=== PATIENT | male | born 1955 | race Caucasian/White ===

== ENCOUNTER 2018-05-24 09:43 | Outpatient (REF) | payer MEDICARE, SELFPAY ==
[2018-05-24 21:33] LABS: Abs Immature Grans 0.02 k/cumm (0.0-0.09); Absolute Basophil Count 0.02 k/cumm (0.0-0.2); Absolute Eosinophil Count 0.04 k/cumm (0.0-0.7); Absolute Lymphocyte Count 0.64 k/cumm (1.2-3.4); Absolute Monocyte Count 0.69 k/cumm (0.11-0.7); Absolute Neutrophil Count 3.43 k/cumm (1.2-6.7); Basophils % 0.4; Eosinophils % 0.8; HCT 40.3 % (40.0-50.0); HGB 12.8 g/dL (13.5-17.5); Immature Grans % 0.4; Lymphocytes % 13.2; Mean Corp. HGB Concentration 31.8 g/dL (32.0-36.0); Mean Corpuscular Hemoglobin 26.8 pg (27.0-33.0); Mean Corpuscular Volume 84.5 fL (80-95); Mean Platelet Volume 11.9 fL (8.0-11.0); Monocytes % 14.3; Neutrophils % 70.9; Platelet Count 194 x1000/uL (130-400); RBC 4.77 m/cumm (4.50-6.00); RBC Distribution Width 14.4 % (11.8-14.1); White Blood Cell Count 4.84 k/cumm (4.4-10.8)
[2018-05-24 21:47] LABS: ALT 58 U/L (12-78); AST 66 U/L (15-37); Alkaline Phosphatase 177 U/L (46-116); Anion Gap 7.4 mmol/L (3-11); BUN 10 mg/dL (7-18); Bilirubin, Total 0.2 mg/dL (0.2-1.0); CO2 27.6 mmol/L (21.0-32.0); CREATININE 0.65 mg/dL (0.70-1.30); Calcium 8.6 mg/dL (8.5-10.1); Chloride 103 mmol/L (98-107); Glucose 89 mg/dL (70-100); Potassium 5.2 mmol/L (3.5-5.1); Sodium 138 mmol/L (136-145); Total Protein 6.6 g/dL (6.4-8.2)
== END 2018-05-24 10:03 ==
LOC: NCHCN 09:43
PROVIDERS: PCP Specialist/Technologist Athletic Trainer; Visit Provider Specialist/Technologist Athletic Trainer
DX: R79.89 Other specified abnormal findings of blood chemistry (principal); R16.1 Splenomegaly, not elsewhere classified; Z51.81 Encounter for therapeutic drug level monitoring
CPT/HCPCS: 80053; 83735; 85025

== ENCOUNTER → 2018-06-01 08:38 | Outpatient (BNVA) | payer MEDICARE, SELFPAY | PROVIDERS: Visit Provider Orthopaedic Surgery | DX: M70.61 Trochanteric bursitis, right hip (principal); M70.62 Trochanteric bursitis, left hip | CPT/HCPCS: 20610; 99211; 99213; J1040 ==

== ENCOUNTER 2018-06-15 16:00 | Outpatient (REF) | payer MEDICARE, SELFPAY ==
[2018-06-15 20:52] LABS: Albumin 3.2 g/dL (3.4-5.0); Alkaline Phosphatase 212 U/L (46-116)
[2018-06-15 21:02] LABS: GGT 175 U/L (15-85)
== END 2018-06-15 16:20 ==
LOC: NCHCN 16:00
PROVIDERS: PCP Specialist/Technologist Athletic Trainer; Visit Provider Specialist/Technologist Athletic Trainer
DX: R74.8 Abnormal levels of other serum enzymes (principal); C49.9 Malignant neoplasm of connective and soft tissue, unspecified
CPT/HCPCS: 82040; 82977; 84075

== ENCOUNTER 2018-06-16 08:15 | Outpatient (CLI) | payer MEDICARE, SELFPAY ==
--- NOTE | 2018-06-16 08:30 | DI.RAD_ITS ---
SYMPTOMS/DIAGNOSIS: LEFT FOOT PAIN, M79.602 LEFT FOOT: Three views. No priors. Mild periarticular spurring and joint space narrowing is seen at the 1st metatarsophalangeal joint. There is a small spur at the plantar surface of the calcaneus. The bones are intact and normally mineralized. Vascular calcifications are present. IMPRESSION: Mild degenerative changes of the left foot.
== END 2018-06-16 08:35 ==
PROVIDERS: PCP Specialist/Technologist Athletic Trainer; Visit Provider Specialist/Technologist Athletic Trainer
DX: M79.672 Pain in left foot (principal); M19.072 Primary osteoarthritis, left ankle and foot
CPT/HCPCS: 73630

== ENCOUNTER → 2018-07-13 10:34 | Outpatient (BNVA) | payer MEDICARE, MEDICAID, SELFPAY | PROVIDERS: PCP Specialist/Technologist Athletic Trainer; Referring Provider Specialist/Technologist Athletic Trainer; Visit Provider Orthopaedic Surgery | DX: M19.032 Primary osteoarthritis, left wrist (principal) | CPT/HCPCS: 20605; 99211; 99213; J1040 ==

== ENCOUNTER 2018-08-16 11:34 | Outpatient (REF) | payer MEDICARE, SELFPAY ==
[2018-08-16 21:40] LABS: ALT 52 U/L (12-78); AST 72 U/L (15-37); Albumin 3.5 g/dL (3.4-5.0); Alkaline Phosphatase 183 U/L (46-116); Anion Gap 9.8 mmol/L (3-11); BUN 9 mg/dL (7-18); Bilirubin, Total 0.4 mg/dL (0.2-1.0); CO2 27.2 mmol/L (21.0-32.0); CREATININE 0.75 mg/dL (0.70-1.30); Chloride 100 mmol/L (98-107); Glucose 100 mg/dL (70-100); Potassium 3.9 mmol/L (3.5-5.1); Sodium 137 mmol/L (136-145); Total Protein 7.6 g/dL (6.4-8.2)
== END 2018-08-16 11:54 ==
LOC: NCHCN 11:34
PROVIDERS: PCP Specialist/Technologist Athletic Trainer; Visit Provider Specialist/Technologist Athletic Trainer
DX: R74.8 Abnormal levels of other serum enzymes (principal); R79.89 Other specified abnormal findings of blood chemistry
CPT/HCPCS: 80053

== ENCOUNTER 2018-08-26 10:47 | Outpatient (REF) | payer MEDICARE, SELFPAY ==
[2018-08-27 10:41] LABS: Campylobacter PCR SEE COMMENTS; Salmonella PCR SEE COMMENTS; Shiga Toxin PCR SEE COMMENTS; Shigella/Enteroinvasive Ecoli SEE COMMENTS
[2018-09-01 12:43] LABS: Helicobacter pylori Ag, Feces Negative (NEGAT)
== END 2018-08-26 11:07 ==
LOC: NCHCN 10:47
PROVIDERS: PCP Specialist/Technologist Athletic Trainer; Visit Provider Specialist/Technologist Athletic Trainer
DX: R14.3 Flatulence (principal); R10.9 Unspecified abdominal pain; R63.4 Abnormal weight loss; K21.9 Gastro-esophageal reflux disease without esophagitis
CPT/HCPCS: 87329; 87338; 87505; 82272; 83630

== ENCOUNTER → 2018-09-09 08:45 | Outpatient (BNVA) | payer MEDICARE, MEDICAID, SELFPAY | PROVIDERS: PCP Specialist/Technologist Athletic Trainer; Referring Provider Specialist/Technologist Athletic Trainer; Visit Provider Orthopaedic Surgery | DX: M70.61 Trochanteric bursitis, right hip (principal); M70.62 Trochanteric bursitis, left hip | CPT/HCPCS: 20610; 99211; 99213; J1040 ==

== ENCOUNTER 2018-09-13 08:19 | Outpatient (CLI) | payer MEDICARE, MEDICAID, SELFPAY ==
[2018-09-13] MEDS: Breeza Beverage 473 ML BTL PO ×2 (09:34→09:35)
[2018-09-13] MEDS: Omnipaque 350 MG/ML 50 ML BTL PO (09:34)
[2018-09-13] MEDS: Omnipaque 350 MG/ML 100 ML BTL IV (09:35)
--- NOTE | 2018-09-13 10:07 | DI.CT_ITS ---
SYMPTOM/DIAGNOSIS: RECENT WT LOSS, F63.4, ABD PAIN, SEVERE GAS AND BLOATING, ELEVATED LFT, ALPH PHOS AND GGT ABDOMEN AND PELVIC CT: CT scan of the abdomen and pelvis was performed following oral and intravenous contrast material. Dependent atelectatic changes are seen in the lung bases. There is a moderate sized hiatal hernia. The liver is normal in size. No evidence of a hepatic mass is seen. There is a nodular contour of the liver raising the question of hepatic cirrhosis. Please correlate clinically. No hepatic mass is seen. The portal and superior mesenteric veins are patent. There is a stone seen within the gallbladder. No biliary ductal dilatation is present. The pancreas is unremarkable. The spleen appears mildly enlarged. There is no evidence of an adrenal mass. The kidneys show normal and symmetric enhancement. No evidence of a solid renal mass or obstruction. The urinary bladder is intact. The reproductive organs are unremarkable. There is atherosclerosis of the abdominal aorta but no aneurysmal dilatation is seen. No significant abdominal or pelvic ascites or pneumoperitoneum is present. There is diverticulosis of the colon but no evidence of acute diverticulitis. No evidence of bowel obstruction or inflammation is seen. No findings to suggest an acute appendicitis are present. There are mildly enlarged lymph nodes seen in the mesentery. The largest measures 1.9 by 1.5 cm. There is an intra-abdominal soft tissue mass seen at the level of the umbilicus measuring 2.5 by 2.3 cm. Degenerative changes are present in the spine. IMPRESSION: 1. Findings suggestive of hepatic cirrhosis. Please correlate clinically. 2. Mildly enlarged lymph nodes in the mesentery. Soft tissue mass seen at the level of the umbilicus. While these may be reactive, neoplasm/metastatic adenopathy cannot be excluded. The soft tissue in the region of the umbilicus may represent scar tissue but a neoplastic process cannot be excluded. 3. Diverticulosis but no evidence of acute diverticulitis.
[2018-09-15 17:53] LABS: Tissue Transglutaminase Ab IgA >100.0 U/mL
== END 2018-09-13 08:39 ==
PROVIDERS: PCP Specialist/Technologist Athletic Trainer; Visit Provider Specialist/Technologist Athletic Trainer
DX: R63.4 Abnormal weight loss (principal); R10.9 Unspecified abdominal pain; R14.3 Flatulence; R14.0 Abdominal distension (gaseous); R74.8 Abnormal levels of other serum enzymes; K74.60 Unspecified cirrhosis of liver; R59.0 Localized enlarged lymph nodes; R19.05 Periumbilic swelling, mass or lump; K57.30 Diverticulosis of large intestine without perforation or abscess without bleeding
CPT/HCPCS: 74177; 83516; J3490; Q9967

== ENCOUNTER → 2018-12-09 08:45 | Outpatient (BNVA) | payer MEDICARE, MEDICAID, SELFPAY | PROVIDERS: PCP Specialist/Technologist Athletic Trainer; Referring Provider Specialist/Technologist Athletic Trainer; Visit Provider Orthopaedic Surgery | DX: M70.61 Trochanteric bursitis, right hip (principal); M70.62 Trochanteric bursitis, left hip | CPT/HCPCS: 20610; 99211; 99213; J1040 ==

== ENCOUNTER → 2018-12-30 10:31 | Outpatient (BNVA) | payer MEDICARE, MEDICAID, SELFPAY | PROVIDERS: PCP Specialist/Technologist Athletic Trainer; Referring Provider Specialist/Technologist Athletic Trainer; Visit Provider Orthopaedic Surgery | DX: M19.132 Post-traumatic osteoarthritis, left wrist (principal); C15.9 Malignant neoplasm of esophagus, unspecified; M25.432 Effusion, left wrist | CPT/HCPCS: 20605; 99211; 99212; J1040 ==

== ENCOUNTER 2019-03-01 07:03 | Outpatient (CLI) | payer MEDICARE, SELFPAY ==
[2019-03-01 08:32] LABS: Abs Immature Grans 0.01 k/cumm (0.0-0.09); Absolute Basophil Count 0.02 k/cumm (0.0-0.2); Absolute Eosinophil Count 0.08 k/cumm (0.0-0.7); Absolute Monocyte Count 0.69 k/cumm (0.11-0.7); Basophils % 0.3; Eosinophils % 1.1; HGB 13.1 g/dL (13.5-17.5); Immature Grans % 0.1; Lymphocytes % 10.7; Mean Corpuscular Hemoglobin 26.3 pg (27.0-33.0); Mean Corpuscular Volume 82.2 fL (80-95); Mean Platelet Volume 10.9 fL (8.0-11.0); Monocytes % 9.2; Neutrophils % 78.6; Platelet Count 308 x1000/uL (130-400); RBC 4.99 m/cumm (4.50-6.00)
[2019-03-01 08:48] LABS: ALT 37 U/L (12-78); AST 50 U/L (15-37); Albumin 3.1 g/dL (3.4-5.0); Alkaline Phosphatase 186 U/L (46-116); Anion Gap 11.9 mmol/L (3-11); BUN 12 mg/dL (7-18); Bilirubin, Total 0.4 mg/dL (0.2-1.0); CO2 27.1 mmol/L (21.0-32.0); Calcium 9.2 mg/dL (8.5-10.1); Chloride 99 mmol/L (98-107); Glucose 105 mg/dL (70-100); LDH 148 U/L (85-227); Potassium 3.9 mmol/L (3.5-5.1); Sodium 138 mmol/L (136-145); Total Protein 7.9 g/dL (6.4-8.2)
== END 2019-03-01 07:23 ==
PROVIDERS: PCP Specialist/Technologist Athletic Trainer; Visit Provider Radiology Radiation Oncology
DX: C15.4 Malignant neoplasm of middle third of esophagus (principal)
CPT/HCPCS: 36415; 80053; 83615; 85025

== ENCOUNTER 2019-03-07 12:05 | Outpatient (CLI) | payer MEDICARE, MEDICAID, SELFPAY ==
[2019-03-07 12:36] LABS: Abs Immature Grans 0.07 k/cumm (0.0-0.09); Absolute Lymphocyte Count 0.13 k/cumm (1.2-3.4); Absolute Monocyte Count 0.15 k/cumm (0.11-0.7); Absolute Neutrophil Count 4.82 k/cumm (1.2-6.7); HCT 36.1 % (40.0-50.0); HGB 11.7 g/dL (13.5-17.5); Immature Grans % 1.4; Lymphocytes % 2.5; Mean Corp. HGB Concentration 32.4 g/dL (32.0-36.0); Mean Corpuscular Hemoglobin 26.8 pg (27.0-33.0); Mean Corpuscular Volume 82.6 fL (80-95); Mean Platelet Volume 10.9 fL (8.0-11.0); Monocytes % 2.9; Neutrophils % 93.2; Platelet Count 226 x1000/uL (130-400); RBC 4.37 m/cumm (4.50-6.00); RBC Distribution Width 14.7 % (11.8-14.1); White Blood Cell Count 5.17 k/cumm (4.4-10.8)
[2019-03-07 12:56] LABS: ALT 43 U/L (12-78); AST 46 U/L (15-37); Albumin 2.7 g/dL (3.4-5.0); Alkaline Phosphatase 166 U/L (46-116); Anion Gap 11.9 mmol/L (3-11); BUN 7 mg/dL (7-18); Bilirubin, Total 0.3 mg/dL (0.2-1.0); CO2 24.1 mmol/L (21.0-32.0); CREATININE 0.69 mg/dL (0.70-1.30); Calcium 8.9 mg/dL (8.5-10.1); Chloride 99 mmol/L (98-107); Glucose 136 mg/dL (70-100); Potassium 4.2 mmol/L (3.5-5.1); Sodium 135 mmol/L (136-145)
== END 2019-03-07 12:25 ==
PROVIDERS: PCP Specialist/Technologist Athletic Trainer; Visit Provider Registered Nurse Oncology
DX: C15.9 Malignant neoplasm of esophagus, unspecified (principal)
CPT/HCPCS: 36415; 80053; 85025

== ENCOUNTER → 2019-03-15 08:51 | Outpatient (BNVA) | payer MEDICARE, SELFPAY | PROVIDERS: PCP Specialist/Technologist Athletic Trainer; Referring Provider Specialist/Technologist Athletic Trainer; Visit Provider Orthopaedic Surgery | DX: M70.61 Trochanteric bursitis, right hip (principal); M70.62 Trochanteric bursitis, left hip; C15.9 Malignant neoplasm of esophagus, unspecified; Z79.899 Other long term (current) drug therapy | CPT/HCPCS: 20610; 99211; 99213; J1040 ==

== ENCOUNTER 2019-03-15 09:13 | Outpatient (CLI) | payer MEDICARE, MEDICAID, SELFPAY ==
[2019-03-15 09:37] LABS: Abs Immature Grans 0.08 k/cumm (0.0-0.09); HCT 34.6 % (40.0-50.0); Mean Corp. HGB Concentration 31.8 g/dL (32.0-36.0); Mean Corpuscular Hemoglobin 26.3 pg (27.0-33.0); Mean Corpuscular Volume 82.8 fL (80-95); Mean Platelet Volume 10.6 fL (8.0-11.0); Platelet Count 164 x1000/uL (130-400); RBC 4.18 m/cumm (4.50-6.00); White Blood Cell Count 2.19 k/cumm (4.4-10.8)
[2019-03-15 09:54] LABS: ALT 51 U/L (12-78); AST 41 U/L (15-37); Alkaline Phosphatase 145 U/L (46-116); Anion Gap 11.2 mmol/L (3-11); BUN 11 mg/dL (7-18); Bilirubin, Total 0.3 mg/dL (0.2-1.0); CO2 21.8 mmol/L (21.0-32.0); CREATININE 0.68 mg/dL (0.70-1.30); Calcium 8.2 mg/dL (8.5-10.1); Chloride 102 mmol/L (98-107); Glucose 161 mg/dL (70-100); Potassium 3.8 mmol/L (3.5-5.1); Sodium 135 mmol/L (136-145); Total Protein 6.7 g/dL (6.4-8.2)
[2019-03-15 09:58] LABS: Absolute Lymphocyte Count 0.11 k/cumm (1.2-3.4); Absolute Monocyte Count 0.11 k/cumm (0.11-0.7); Absolute Neutrophil Count 1.93 k/cumm (1.2-6.7)
[2019-03-15 09:59] LABS: Anisocytosis 1+; Atypical Lymphocytes % 1; Diff Comment Manual Differential; Hypochromasia 1+; Polychromasia Present
== END 2019-03-15 09:33 ==
PROVIDERS: PCP Nurse Practitioner Family; Visit Provider Radiology Radiation Oncology
DX: C15.9 Malignant neoplasm of esophagus, unspecified (principal); M70.61 Trochanteric bursitis, right hip; M70.62 Trochanteric bursitis, left hip; Z79.899 Other long term (current) drug therapy
CPT/HCPCS: 20610; 36415; 80053; 99213; 85025; J1040

== ENCOUNTER 2019-03-21 09:43 | Outpatient (CLI) | payer MEDICARE, MEDICAID, SELFPAY ==
[2019-03-21 10:18] LABS: Abs Immature Grans 0.02 k/cumm (0.0-0.09); Absolute Eosinophil Count 0.01 k/cumm (0.0-0.7); Absolute Lymphocyte Count 0.06 k/cumm (1.2-3.4); Absolute Monocyte Count 0.18 k/cumm (0.11-0.7); Absolute Neutrophil Count 2.29 k/cumm (1.2-6.7); Eosinophils % 0.4; HCT 39.6 % (40.0-50.0); Immature Grans % 0.8; Lymphocytes % 2.3; Mean Corp. HGB Concentration 32.8 g/dL (32.0-36.0); Mean Corpuscular Hemoglobin 26.4 pg (27.0-33.0); Mean Corpuscular Volume 80.3 fL (80-95); Mean Platelet Volume 10.1 fL (8.0-11.0); Neutrophils % 89.5; Platelet Count 159 x1000/uL (130-400); RBC 4.93 m/cumm (4.50-6.00); RBC Distribution Width 15.9 % (11.8-14.1); White Blood Cell Count 2.56 k/cumm (4.4-10.8)
[2019-03-21 10:33] LABS: ALT 56 U/L (12-78); AST 41 U/L (15-37); Albumin 3.2 g/dL (3.4-5.0); Alkaline Phosphatase 169 U/L (46-116); Anion Gap 8.8 mmol/L (3-11); BUN 22 mg/dL (7-18); Bilirubin, Total 0.6 mg/dL (0.2-1.0); CO2 25.2 mmol/L (21.0-32.0); CREATININE 0.59 mg/dL (0.70-1.30); Calcium 8.9 mg/dL (8.5-10.1); Chloride 99 mmol/L (98-107); Glucose 114 mg/dL (70-100); Potassium 4.2 mmol/L (3.5-5.1); Sodium 133 mmol/L (136-145); Total Protein 7.6 g/dL (6.4-8.2)
== END 2019-03-21 10:03 ==
PROVIDERS: PCP Nurse Practitioner Family; Visit Provider Registered Nurse Oncology
DX: C15.9 Malignant neoplasm of esophagus, unspecified (principal)
CPT/HCPCS: 36415; 80053; 85025

== ENCOUNTER 2019-04-19 10:44 | Outpatient (REF) | payer MEDICARE, MEDICAID, SELFPAY ==
[2019-04-19 13:28] LABS: Abs Immature Grans 0.09 k/cumm (0.0-0.09); Absolute Basophil Count 0.02 k/cumm (0.0-0.2); Absolute Eosinophil Count 0.02 k/cumm (0.0-0.7); Absolute Lymphocyte Count 0.39 k/cumm (1.2-3.4); Absolute Monocyte Count 0.61 k/cumm (0.11-0.7); Absolute Neutrophil Count 3.83 k/cumm (1.2-6.7); Basophils % 0.4; Eosinophils % 0.4; HCT 36.6 % (40.0-50.0); HGB 11.4 g/dL (13.5-17.5); Immature Grans % 1.8; Lymphocytes % 7.9; Mean Corp. HGB Concentration 31.1 g/dL (32.0-36.0); Mean Corpuscular Hemoglobin 27.7 pg (27.0-33.0); Mean Corpuscular Volume 88.8 fL (80-95); Monocytes % 12.3; Neutrophils % 77.2; Platelet Count 241 x1000/uL (130-400); RBC 4.12 m/cumm (4.50-6.00); RBC Distribution Width 22.9 % (11.8-14.1); White Blood Cell Count 4.96 k/cumm (4.4-10.8)
[2019-04-19 13:37] LABS: ALT 47 U/L (12-78); AST 55 U/L (15-37); Albumin 2.5 g/dL (3.4-5.0); Alkaline Phosphatase 350 U/L (46-116); Anion Gap 10.9 mmol/L (3-11); BUN 7 mg/dL (7-18); Bilirubin, Total 0.2 mg/dL (0.2-1.0); CO2 25.1 mmol/L (21.0-32.0); CREATININE 0.57 mg/dL (0.70-1.30); Calcium 8.4 mg/dL (8.5-10.1); Chloride 104 mmol/L (98-107); Glucose 115 mg/dL (70-100); Potassium 3.7 mmol/L (3.5-5.1); Sodium 140 mmol/L (136-145); Total Protein 6.8 g/dL (6.4-8.2)
[2019-04-19 15:07] LABS: Anisocytosis 1+
[2019-04-20 10:31] LABS: Prealbumin 17 mg/dL (20-40)
== END 2019-04-19 11:04 ==
LOC: LBO 10:44
PROVIDERS: PCP Nurse Practitioner Family; Visit Provider Nurse Practitioner Adult Health
DX: S31.102D Unspecified open wound of abdominal wall, epigastric region without penetration into peritoneal cavity, subsequent encounter (principal); C49.21 Malignant neoplasm of connective and soft tissue of right lower limb, including hip
CPT/HCPCS: 36415; 80053; 84134; 85025

== ENCOUNTER 2019-08-09 13:12 | Outpatient (CLI) | payer MEDICARE, SELFPAY ==
[2019-08-09 13:49] LABS: ALT 43 U/L (16-63); AST 94 U/L (15-37); Albumin 1.5 g/dL (3.4-5.0); Alkaline Phosphatase 315 U/L (46-116); Anion Gap 13.8 mmol/L (3-11); BUN 22 mg/dL (7-18); Bilirubin, Total 1.2 mg/dL (0.2-1.0); CO2 20.2 mmol/L (21.0-32.0); CREATININE 1.21 mg/dL (0.70-1.30); Calcium 7.4 mg/dL (8.5-10.1); Chloride 98 mmol/L (98-107); Glucose 81 mg/dL (74-106); Potassium 3.3 mmol/L (3.5-5.1); Sodium 132 mmol/L (136-145); Total Protein 4.9 g/dL (6.4-8.2)
[2019-08-09 13:52] LABS: Abs Immature Grans 0.04 k/cumm (0.0-0.09); Absolute Lymphocyte Count 0.09 k/cumm (1.2-3.4); Absolute Neutrophil Count 16.29 k/cumm (1.2-6.7); Basophils % 0.1; Eosinophils % 0.1; HCT 32.9 % (40.0-50.0); HGB 10.7 g/dL (13.5-17.5); Immature Grans % 0.2; Lymphocytes % 0.5; Mean Corp. HGB Concentration 32.5 g/dL (32.0-36.0); Mean Corpuscular Hemoglobin 25.7 pg (27.0-33.0); Mean Corpuscular Volume 79.1 fL (80-95); Mean Platelet Volume 11.6 fL (8.0-11.0); Monocytes % 4.5; Neutrophils % 94.6; Platelet Count 157 x1000/uL (130-400); RBC 4.16 m/cumm (4.50-6.00); RBC Distribution Width 18.7 % (11.8-14.1); White Blood Cell Count 17.22 k/cumm (4.4-10.8)
[2019-08-09 13:54] LABS: Absolute Basophil Count 0.02 k/cumm (0.0-0.2); Absolute Eosinophil Count 0.02 k/cumm (0.0-0.7); Absolute Monocyte Count 0.77 k/cumm (0.11-0.7)
== END 2019-08-09 13:32 ==
PROVIDERS: PCP Nurse Practitioner Family; Visit Provider Nurse Practitioner Adult Health
DX: C15.4 Malignant neoplasm of middle third of esophagus (principal)
CPT/HCPCS: 36415; 80053; 85025